=== PATIENT | male | born 1995 | race Caucasian/White ===

== ENCOUNTER 2016-09-09 16:00 | Emergency (ER) | payer OTHER ==
[2016-09-09] MEDS ORDERED: MORPHINE SULFATE 10 MG/ML INJ IV ONE (16:41)
[2016-09-09] MEDS ORDERED: ONDANSETRON HCL INJ/PF 4 MG/2 ML SDV IV ONE (16:41)
[2016-09-09] MEDS ORDERED: NORMAL SALINE 1000 ML 1,000 ML IV PRN (16:41)
--- NOTE | 2016-09-09 16:43 | ER Document Report ---
ED Medical Screen (RME) - General Chief Complaint: Abdominal Pain Stated Complaint: VOMITING Time Seen by Provider: 09/09/16 16:40 Notes: Patient presents with 4-5 days of severe abdominal pain. He is also had coffee- ground emesis. Patient has no chronic medical conditions. Patient states she was seen at the [facility] yesterday and ultrasound and CT scan were done. He states he was told he has gastritis and was discharged home with medicines for nausea and acid reflux. He states he has taken these medications but they are not helping. He states he has had very minimal urine output feels dehydrated. He also states that he has had frequent loose stools. TRAVEL OUTSIDE OF THE [place] IN LAST 30 DAYS: No - Related Data Allergies/Adverse Reactions: No Known Allergies Allergy (Unverified 09/09/16 16:08) Home Medications: Current Home Medications Mag Hydrox/Al Hydrox/Simeth [Maalox Suspension] 355 ml PO QID 09/09/16 [History] Promethazine HCl [Phenergan 25 mg Supp.rect] 25 mg [place] Q4HP PRN 09/09/16 [History ] Sucralfate [Carafate 1 gm Tablet] 1 gm PO ACHS 09/09/16 [History] Past Medical History - Social History Chew tobacco use (# tins/day): No Frequency of alcohol use: None Drug Abuse: None Renal/ Medical History: Denies: Hx Peritoneal Dialysis Surgical Hx: Negative Physical Exam - Vital signs Vitals: Temp Pulse Resp BP Pulse Ox 98.3 F 91 H 20 110/58 L 99 09/09/16 16:07 09/09/16 16:07 09/09/16 16:07 09/09/16 16:07 09/09/16 16:07 Course - Vital Signs Vital signs: Temp Pulse Resp BP Pulse Ox 98.3 F 91 H 20 110/58 L 99 09/09/16 16:07 09/09/16 16:07 09/09/16 16:07 09/09/16 16:07 09/09/16 16:07
[2016-09-09 17:17] LABS: ABSOLUTE LYMPHOCYTES (AUTO) 1.2 10^3/uL (0.5-4.7); ABSOLUTE MONOCYTES (AUTO) 0.8 10^3/uL (0.1-1.4); ABSOLUTE NEUT (AUTO) 9.4 10^3/uL (1.7-8.2); BASOPHILS % (AUTO) 0.3 % (0-2); LYMPHOCYTES % (AUTO) 10.7 % (13-45); MEAN CORPUSCULAR HEMOGLOBIN 31.5 pg (27.0-33.4); MEAN CORPUSCULAR HGB CONC 34.1 g/dL (32.0-36.0); MEAN CORPUSCULAR VOLUME 93 fl (80-97); MONOCYTES % (AUTO) 6.9 % (3-13); RED BLOOD COUNT 4.76 10^6/uL (4.35-5.55); RED CELL DISTRIBUTION WIDTH 14.6 % (11.5-14.0); SEGMENTED NEUTROPHILS % (AUTO) 82.1 % (42-78); WHITE BLOOD COUNT 11.4 10^3/uL (4.0-10.5)
[2016-09-09 17:34] LABS: ALANINE AMINOTRANSFERASE 19 U/L (10-40); ALBUMIN 4.7 g/dL (3.7-5.6); ALKALINE PHOSPHATASE 77 U/L (65-260); ANION GAP 12 (5-19); ASPARTATE AMINO TRANSFERASE 36 U/L (10-45); BILIRUBIN,DIRECT 0.2 mg/dL (0.0-0.4); BILIRUBIN,TOTAL 1.3 mg/dL (0.2-1.3); BLOOD UREA NITROGEN 20 mg/dL (7-20); CALCIUM 9.6 mg/dL (8.4-10.2); CARBON DIOXIDE 29 mmol/L (22-30); CHLORIDE 98 mmol/L (98-107); CREATININE RESULT 0.87 mg/dL (0.52-1.25); GLUCOSE 98 mg/dL (75-110); LIPASE 35.5 U/L (23-300); SODIUM 138.9 mmol/L (137-145); TOTAL PROTEIN 7.4 g/dL (6.3-8.2)
--- NOTE | 2016-09-09 18:07 | ER Document Report ---
ED General - General Chief Complaint: Abdominal Pain Stated Complaint: VOMITING Time Seen by Provider: 09/09/16 16:40 Mode of Arrival: Ambulatory Information source: Patient, Relative TRAVEL OUTSIDE OF THE [place] IN LAST 30 DAYS: No - HPI Onset: Other - 3-4 days Associated symptoms: Nausea - two visits to [facility] yesterday, Vomiting. denies: Diarrhea - Related Data Allergies/Adverse Reactions: No Known Allergies Allergy (Unverified 09/09/16 16:08) Home Medications: Current Home Medications Mag Hydrox/Al Hydrox/Simeth [Maalox Suspension] 355 ml PO QID 09/09/16 [History] Promethazine HCl [Phenergan 25 mg Supp.rect] 25 mg [place] Q4HP PRN 09/09/16 [History ] Sucralfate [Carafate 1 gm Tablet] 1 gm PO ACHS 09/09/16 [History] Past Medical History - Social History Smoking Status: Never Smoker Chew tobacco use (# tins/day): No Frequency of alcohol use: None Drug Abuse: None Family History: Reviewed & Not Pertinent Renal/ Medical History: Denies: Hx Peritoneal Dialysis Surgical Hx: Negative Review of Systems - Review of Systems Constitutional: No symptoms reported EENT: No symptoms reported Cardiovascular: No symptoms reported Respiratory: No symptoms reported Gastrointestinal: Abdominal pain, Nausea, Vomiting, Poor appetite, Poor fluid intake. denies: Diarrhea, Black stools, Rectal bleeding Genitourinary: No symptoms reported Musculoskeletal: No symptoms reported Skin: No symptoms reported Hematologic/Lymphatic: No symptoms reported Neurological/Psychological: No symptoms reported Physical Exam - Vital signs Vitals: Temp Pulse Resp BP Pulse Ox 98.3 F 91 H 20 110/58 L 99 09/09/16 16:07 09/09/16 16:07 09/09/16 16:07 09/09/16 16:07 09/09/16 16:07 - General General appearance: Appears well, Alert - Respiratory Respiratory status: No respiratory distress Chest status: Nontender Breath sounds: Normal Chest palpation: Normal - Cardiovascular Rhythm: Regular Heart sounds: Normal auscultation Murmur: No - Abdominal Distension: No distension Bowel sounds: Normal Tenderness: Tender - Tenderness palpation in the epigastrium with no associated guarding rebound rigidity pulsatile dullness or - Back Back: Normal, Nontender - Extremities General upper extremity: Normal inspection, Nontender, Normal color, Normal ROM , Normal temperature General lower extremity: Normal inspection, Nontender, Normal color, Normal ROM , Normal temperature, Normal weight bearing. No: Lam's sign - Neurological Neuro grossly intact: Yes Cognition: Normal Orientation: AAOx4 Herminio Coma Scale Eye Opening: Spontaneous Herminio Coma Scale Verbal: Oriented Herminio Coma Scale Motor: Obeys Commands Herminio Coma Scale Total: 15 Speech: Normal Motor strength normal: LUE, RUE, LLE, RLE Sensory: Normal - Skin Skin Temperature: Warm Skin Moisture: Dry Skin Color: Normal Course - Re-evaluation Re-evalutation: 09/09/16 18:05 Presents emergency department with his with a chief complaint of vomiting and abdominal pain. They state that he was seen on Wednesday morning over at [facility] and they were concerned he likely had an ulcer or gastritis. He was sent home on medications which point system shows that he filled. They had done an ultrasound and a CAT scan were told there was some inflammation of the colon but was otherwise negative. She said that she emergently came from [place] and that he had not had a bowel movement so she gave him an enema. She said only clear water came out at that time. He has not had anything to eat in several days and is previously healthy 20-year-old. She returned back to [facility] for a second visit yesterday and brought a vomit specimen and said they checked it and there was blood in it. He is continuing to have mild epigastric tenderness and some nausea but no blood. She states that she does not understand why it is not healed yet or fixed. She did not understand what Rita's plan was in assessing him. On my examination he is well-appearing nontoxic is not tachycardic hypotensive he is afebrile he is mild epigastric tenderness no associated guarding rebound rigidity pulsatile mass or hernias. He denies any lower GI bleeding. In view acute H&H she wants him to be checked to see if he has blood in the stomach I explained that that would require an NG tube they want to have that done despite me explaining what that requires he consents to that and wants to have that done. We did have a brief conversation that gastritis and ulceration would not heal this quickly and that the medications would take time to heal it. No acute guarding rebound or rigidity. And was given medications out in the triage area 09/09/16 19:36 09/09/16 19:36 Bryce has negative acute laboratory abnormalities including liver enzymes lipase H&H are stable. 09/09/16 19:43 NG tube was placed and suction and there was no blood in the abdomen. He did have a little bit of a nosebleed which she spit up some blood she explained to them that was due to the placement of the tube. He is otherwise hemodynamically stable H&H are stable he is going to be discharged home on Carafate and Zofran follow-up with his primary care physician in 1-2 days give him GI for follow-up and discussed reasons for ED return - Vital Signs Vital signs: Temp Pulse Resp BP Pulse Ox 98.3 F 91 H 20 110/58 L 99 09/09/16 16:07 09/09/16 16:07 09/09/16 16:07 09/09/16 16:07 09/09/16 16:07 - Laboratory Result Diagrams: 09/09/16 17:05 09/09/16 17:05 Laboratory results interpreted by me: 09/09/16 09/09/16 17:05 18:30 WBC 11.4 H RDW 14.6 H Seg Neutrophils % 82.1 H Lymphocytes % 10.7 L Absolute Neutrophils 9.4 H Urine Ketones 20 H Discharge - Discharge Clinical Impression: epigastric pain possible gastritis, nausea and vomiting Condition: Stable Disposition: HOME, SELF-CARE Instructions: Abdominal Pain ([facility]) Additional Instructions: Abdominal Pain There are many causes of abdominal pain. Pain can mean a serious problem requiring surgery (such as appendicitis). It can also be an innocent problem that goes away on its own (such as a viral infection). Often, time must pass to determine the cause of pain. The physician does not feel that hospitalization is necessary, at present. Things may change within the next 24 hours. Call the doctor or come back for re- examination if any problems occur, such as: (1) Pain that becomes more severe, steady, or becomes concentrated in one specific area. Also, pain that is more severe with movement or coughing. (2) Vomiting that persists or becomes more frequent. (3) Blood in the vomitus, urine, or bowel movements. Blood in the stool may have a tarry or black appearance. (4) Shaking chills or fever greater than 100 degrees F. (5) The abdomen becomes more distended or swollen. (6) Bowel movements cease. (7) Failure to improve as expected. Vomiting Vomiting can be part of many illnesses. Most cases of vomiting are due to gastroenteritis, usually a viral infection in the intestinal tract. There is no specific treatment. The disease will end by itself. For now, the main danger to your child is dehydration. During the first few hours of the illness, give clear liquids, such as Pedialyte. Try to give small quantities frequently, such as a teaspoon of liquid every minute or about an ounce of fluids every five to ten minutes. Medications may be prescribed by the physician for special cases. After an hour or two of fluids without vomiting, add rice cereal, toast, applesauce, or bananas and other more solid foods to the clear liquids. Call the physician or go to the hospital if vomiting increases or blood appears in the bowel movement or vomitus; if your child fails to improve, or if signs of dehydration occur (no wet diapers for eight to twelve hours, tongue and mouth become dry, not acting as alert as usual). Prescriptions: Ondansetron [Zofran Odt 4 mg Tablet] 1 - 2 tab PO Q4H PRN #15 tab.rapdis PRN Reason: For Nausea/Vomiting Sucralfate [Carafate 1 gm Tablet] 1 gm PO ACHS #15 tablet Referrals: MILLIE BRINK MD [ACTIVE STAFF] - (call His office in a.m. to schedule follow- up appointment in 4-5 days as well as your primary care physician in 2-3 days return for increasing worsening or new symptoms)
[2016-09-09 18:55] LABS: AMORPHOUS SEDIMENT,URINE TRACE /HPF; APPEARANCE,URINE CLOUDY; BILIRUBIN,URINE NEGATIVE (NEGATIVE); GLUCOSE, URINE NEGATIVE (NEGATIVE); KETONES,URINE 20 mg/dL (NEGATIVE); LEUKOCYTE ESTERASE,URINE NEGATIVE (NEGATIVE); NITRITE,URINE NEGATIVE (NEGATIVE); PROTEIN,URINE NEGATIVE (NEGATIVE); URINE SPECIFIC GRAVITY 1.025; UROBILINOGEN,URINE NEGATIVE mg/dL (<2.0)
[2016-09-09 19:05] LABS: URINE BARBITURATES SCREEN NEGATIVE; URINE METHADONE SCREEN NEGATIVE; URINE OPIATES LOW UNCONFIRMED POSITIVE; URINE PHENCYCLIDINE SCREEN NEGATIVE
[2016-09-09 20:06] VITALS: BP 116/78
== END 2016-09-09 20:09 | disposition home or self-care (01) ==
LOC: EDSEX → ER 16:00
DX: R10.13 Epigastric pain (principal); R11.2 Nausea with vomiting, unspecified; R63.0 Anorexia; R04.0 Epistaxis
CPT/HCPCS: 99284; 96361; 96374; 96375; 36415; 83690; 85025; 80053; 81001; 80307; J2270; J2405; J7030